=== PATIENT | male | born 1970 | race Caucasian/White ===

== ENCOUNTER 2020-06-02 15:56 | Emergency (ER) | payer OTHER, SELFPAY ==
--- NOTE | ~2020-06-02 | XR_ITS ---
XR wrist LT min 3V, XR wrist RT min 3V 06/02/2020 17:56 Indication: Generalized wrist pain after fall Procedure: 4 views each wrist Comparison: No prior studies for comparison. Findings: There are degenerative cysts in the lunate bilaterally. Mild degenerative changes of the fi rst MCP joints. No fracture or traumatic malalignment. No significant soft tissue abnormality. No rad iopaque foreign bodies. Scaphoid is intact. Impression: 1: No acute fracture. Reviewed, dictated and finalized at location A. L POURER Impression: 1: No acute fracture. Impression: 1: No acute fracture.
--- NOTE | ~2020-06-02 | CT_ITS ---
EXAMINATION: CT facial bones wo con DATE: 06/02/2020 17:35 INDICATION: Facial injury. Evaluate for fracture. TECHNIQUE: Computed tomography (CT) of the facial bones was performed without intravenous contrast. T he dose-length product was 606.00 mGy-cm. Automated exposure control and iterative reconstruction ailin hnique were employed. COMPARISON: None FINDINGS: No acute facial fracture. Rightward nasal septal deviation. Nasal bones intact. Left-sided ramiro bullosa. Temporal mandibular joints are symmetric. There is mild anterior subluxation of the m andibular condyles with respect to the temporomandibular joint, possibly chronic. There is mild perim andibular soft tissue swelling with adjacent gas. Paranasal sinuses are unremarkable. IMPRESSION: 1. No acute fracture. Mild anterior subluxation at the temporomandibular joints, possibly chronic. Reviewed, dictated and finalized at location A. ANALYST IMPRESSION: 1. No acute fracture. Mild anterior subluxation at the temporomandibular joints , possibly chronic.
--- NOTE | ~2020-06-02 | CT_ITS ---
EXAMINATION: CT BRAIN W/O DATE: 06/02/2020 17:35 INDICATION: Head injury. Patient on blood thinners. TECHNIQUE: Computed tomography (CT) of the head was performed without intravenous contrast. The dose- length product was 681.00 mGy-cm. Automated exposure control and iterative reconstruction technique w ere employed. COMPARISON: No prior studies for comparison. FINDINGS: Normal brain parenchymal volume for age. Normal greenberg-white differentiation. No acute intrac ranial hemorrhage, infarction, mass or mass effect. No ventriculomegaly or midline shift. Midline sagittal images demonstrate a normal corpus callosum, c raniovertebral junction and sella turcica. Basilar cisterns are patent. Paranasal sinuses and mastoids are pneumatized. No depressed skull fractures. IMPRESSION: 1. No acute intracranial abnormality. Reviewed, dictated and finalized at location A. DROMAT MANAGER
--- NOTE | ~2020-06-02 | XR_ITS ---
XR knee RT min 4V 06/02/2020 17:56 Indication: Generalized right knee pain Procedure: 4 views right knee Comparison: No prior studies for comparison. Findings: No acute fracture or traumatic malalignment. There is moderate osteoarthritis. No significa nt joint effusion. No focal soft tissue abnormality. Impression: 1: No acute fracture. Reviewed, dictated and finalized at location A. SITE SPECIALIST Impression: 1: No acute fracture.
--- NOTE | ~2020-06-02 | XR_ITS ---
XR shoulder RT min 2V 06/02/2020 17:54 INDICATION: Right shoulder pain PROCEDURE: 4 views right shoulder COMPARISON: No prior studies for comparison. FINDINGS: Fracture, dislocation or subluxation is not identified. The soft tissues appear within norm al limits. No foreign bodies are identified. IMPRESSION: 1: NO ACUTE BONE OR JOINT ABNORMALITY IDENTIFIED. Reviewed, dictated and finalized at location A. PRESIDENT MEDIA RELATIONS
[2020-06-02 16:01] VITALS: BP 166/88; PULSE 89; RESP 18; TEMP 35.7; O2SAT 100
--- NOTE | 2020-06-02 16:45 | ED.FALL ---
HPI - Fall General Chief Complaint: Wound/Laceration <ROSHAN Miller Last Filed: 06/02/20 19:18> Stated Complaint: fall - lip lac <ROSHAN Miller Last Filed: 06/02/20 19:18> Time Seen by Provider: 06/02/20 16:34 <ROSHAN Miller Last Filed: 06/02/20 19:18> Source: patient <ROSHAN Miller Last Filed: 06/02/20 19:18> Mode of arrival: ambulatory <ROSHAN Miller Last Filed: 06/02/20 19:18> Limitations: no limitations <ROSHAN Miller Last Filed: 06/02/20 19:18> History of Present Illness HPI Narrative: This is a 49 year old male that presents to the ER for a fall today with head injury. Reports he slipped on ice and fell forward. Reports lacerations to the lip. Reports pain in the right shoulder, right knee and bilateral wrists. He is unsure of his last tetanus vaccine. Denies loss of consciousness, vision changes, vomiting, or numbness. <ROSHAN Miller Last Filed: 06/02/20 19:18> Related Data Home Medications: Home Medications Medication Instructions Recorded Confirmed amiodarone 200 mg PO DAILY 06/02/20 apixaban [Eliquis] 5 mg PO BID 06/02/20 atorvastatin 40 mg PO DAILY 06/02/20 hydrochlorothiazide 25 mg PO DAILY 06/02/20 lisinopril 20 mg PO DAILY 06/02/20 metformin 750 mg PO BID 06/02/20 metoprolol succinate 50 mg PO DAILY 06/02/20 <ROSHAN Miller Last Filed: 06/02/20 19:18> Allergies/Adverse Reactions: Allergies Allergy/AdvReac Type Severity Reaction Status Date / Time No Known Allergies Allergy Verified 06/02/20 16:05 <ROSHAN Miller Last Filed: 06/02/20 19:18> Review of Systems Review of Systems: Narrative: CONSTITUTIONAL: Denies fever EYES: Denies visual changes GASTROINTESTINAL: Denies vomiting SKIN: Reports laceration MUSCULOSKELETAL: Reports joint pain and myalgia. Denies back pain NEUROLOGIC: Denies numbness, or weakness. <Deysi Samaniego PA-C - Last Filed: 06/02/20 19:18> All systems reviewed & are unremarkable except as noted in HPI and below <Deysi Samaniego PA-C - Last Filed: 06/02/20 19:18> [facility] Past Medical History Medical History: Medical History (Updated 06/02/20 @ 19:13 by Deysi Samaniego PA-C) History of diabetes mellitus History of hyperlipidemia History of hypertension <Deysi Samaniego PA-C - Last Filed: 06/02/20 19:18> Social History Social History: Social History Gender identity (if verbalized by the patient): Male <Deysi Samaniego PA-C - Last Filed: 06/02/20 19:18> Exam Narrative: Exam Narrative: GENERAL: Well-appearing, obese, and in no acute distress. HEAD: Normocephalic, atraumatic. EYES: PERRLA and EOMI. ENT: Nares clear, no rhinorrhea or epistaxis. Mucous membranes moist. Oropharynx without tonsillar hypertrophy exudate or other lesions. 1.5cm laceration of the inner lower lip. Additional 1.5cm deeper laceration on the inside of the lower lip. Bilateral TMs pearly greenberg non-bulging NECK: Supple. No adenopathy or masses. No midline spinal tenderness CHEST: Clear to auscultation. No respiratory distress. No wheezes rales or rhonchi HEART: Regular rate and rhythm. No murmur heard. Normal peripheral pulses. BACK: No midline spinal tenderness EXTREMITIES: Normal range of motion. No edema or obvious deformity. Strength equal in bilateral upper extremities (5/5) SKIN: Warm, dry, no rash. NEURO: No focal deficits. Alert and oriented x3. CN II-XII grossly intact PSYCH: Normal mood and affect <Deysi Samaniego PA-C - Last Filed: 06/02/20 19:18> Course CRANE OPERATOR/PA Physician Supervision For this patient encounter, I reviewed the CRANE OPERATOR or PA documentation, treatment plan, and medical decision making; and I had [id number] time with this patient. 49 yo male on eliquis presents to the ED after a fall. Imaging negative. Found to have multiple intraoral lacerations on the lower lip. Discussed closured technique with the PA. L
[2020-06-02] MEDS: TETANUS,DIPHTHERIA,AC PERTUSSIS ADULT (0.5 ML) BOOSTRIX IM (17:06)
[2020-06-02] MEDS: HYDROcodone/acetaminophen (*CRX) 5-325 MG TABLET 1 TAB PO (18:22)
[2020-06-02 19:31] VITALS: BP 150/84; PULSE 87; RESP 19; O2SAT 99
== END 2020-06-02 19:35 | disposition home or self-care (01) ==
PROVIDERS: Emergency Provider Emergency Medicine
DX: S01.511A Laceration without foreign body of lip, initial encounter (principal); S09.90XA Unspecified injury of head, initial encounter; E11.9 Type 2 diabetes mellitus without complications; E78.5 Hyperlipidemia, unspecified; I10 Essential (primary) hypertension; Z79.01 Long term (current) use of anticoagulants; Z79.84 Long term (current) use of oral hypoglycemic drugs; R93.0 Abnormal findings on diagnostic imaging of skull and head, not elsewhere classified; Z23 Encounter for immunization; W00.0XXA Fall on same level due to ice and snow, initial encounter
CPT/HCPCS: 12013; 70450; 70486; 73030; 73110; 73564; 90471; 90715; 99284; A9270